=== PATIENT | male | born 1980 | race American Indian/Alaskan Native ===

== ENCOUNTER 2017-09-12 12:02 | Emergency (ER) | payer SELFPAY ==
[2017-09-12 12:02] VITALS: BMI 24.4
[2017-09-12 12:58] VITALS: BP 168/60; PULSE 73; RESP 16; TEMP 98.6; O2SAT 99
--- NOTE | 2017-09-12 15:13 | ED PDOC ---
Upper Extremity Pain/Injury Time Seen by Provider: 09/12/17 14:09 Chief Complaint (Nursing): Finger,Hand,&Wrist Chief Complaint (Provider): Finger, Hand & Wrist History Per: Patient History/Exam Limitations: no limitations Onset/Duration Of Symptoms: Days (x1 month) Additional Complaint(s): Josué Ni is a 37 year old male, with no significant past medical history, who presents to the emergency department with a diagnosed boxer fracture on right hand on August 14 with a splint applied. Patient states he lost his discharge paperwork and was supposed to follow up with orthopedist but has not done so yet. Patient thought the ER would have the orthopedist doctor available for him to follow up. No further medical complaints. PMD: None provided. Past Medical History Reviewed: Historical Data, Nursing Documentation, Vital Signs Vital Signs: Last Vital Signs Temp 98.6 F 09/12/17 12:55 Pulse 73 09/12/17 12:55 Resp 16 09/12/17 12:55 BP 168/60 H 09/12/17 12:55 Pulse Ox 99 09/12/17 12:55 - Surgical History Surgical History: No Surg Hx - Family History Family History: States: Unknown Family Hx - Social History Current smoker - smoking cessation education provided: Yes (heavy smoker >10 cigarettes daily) Alcohol: Social Drugs: Cannabis - Immunization History Hx Tetanus Toxoid Vaccination: Yes Hx Influenza Vaccination: No Hx Pneumococcal Vaccination: No - Home Medications Home Medications: Ambulatory Orders Medication Instructions Recorded Amoxicillin/Clavulanate [Augmentin 1 tab PO BID #20 tab 08/14/17 875 MG-125 MG] Ibuprofen [Motrin] 400 mg PO QID #30 tab 08/14/17 - Allergies Allergies/Adverse Reactions: Allergies Allergy/AdvReac Type Severity Reaction Status Date / Time No Known Allergies Allergy Verified 09/12/17 12:55 Review of Systems ROS Statement: Except As Marked, All Systems Reviewed And Found Negative Musculoskeletal: Positive for: Hand Pain (right hand fracture w/ splint) Physical Exam - Reviewed Nursing Documentation Reviewed: Yes Vital Signs Reviewed: Yes - Physical Exam Comments: Patient refused physical exam. - ECG O2 Sat by Pulse Oximetry: 99 (RA) Pulse Ox Interpretation: Normal Medical Decision Making Medical Decision Making: Initial Impression: Hand fracture --Patient refusing physical exam. --Patient left prior to completing treatment. AMA Patient refuses further care, evaluation or treatment in the ER. Patient informed of the reasons for the following and planned treatment, which patient understands, however still refuses. Patient informed of the risk and benefits of treatment. Informed that the risk could include worsening of current conditions, undiagnosed conditions, disability or even . Patient understands the following risk and the benefits of treatment. Patient has the capacity to make decisions and still refuses treatment by RN, PA and ER MD. Patient encouraged to return to the ER at any time and to follow up with pmd. ~ Scribe Attestation: Documented by Mk Malone, acting as a scribe for Lottie Manjarrez PA-C. Provider Scribe Attestation: All medical record entries made by the Scribe were at my direction and personally dictated by me. I have reviewed the chart and agree that the record accurately reflects my personal performance of the history, physical exam, medical decision making, and the department course for this patient. I have also personally directed, reviewed, and agree with the discharge instructions and disposition. Disposition - Clinical Impression Clinical Impression: Hand fracture - Disposition Disposition: Left W/O Treatment Disposition Time: 14:10 Condition: UNKNOWN Forms: [employer] (Polish) - PA / [employer] ANALYST / Resident Statement /DO has reviewed & agrees with the documentation as recorded.
== END 2017-09-12 14:30 | disposition left against medical advice (07) ==
LOC: H.ER 12:02
DX: Z47.89 Encounter for other orthopedic aftercare (principal)